=== PATIENT | male | born 1960 | race African-American/Black ===

== ENCOUNTER 2021-02-05 01:18 | Emergency (ER) | payer SELFPAY ==
[~2021-02-05] VITALS: Ht 177.8 cm; Wt 80.0 kg
[2021-02-05] MEDS ORDERED: SODIUM CHLORIDE 0.9% 1,000 ML IV ONE (02:00)
[2021-02-05 02:37] LABS: EOSINOPHILS % 2.1 % (0.0-5.0); HEMATOCRIT. 40.4 % (42.0-52.0); HEMOGLOBIN. 14.1 g/dL (14.0-18.0); LYMPHOCYTES % 25.3 % (20.0-50.0); MEAN CORPUSCULAR HEMOGLOBIN 31.2 pg (28.0-32.0); MEAN CORPUSCULAR VOLUME 89.2 fL (80.0-94.0); MEAN PLATELET VOLUME 7.7 fl (7.4-10.4); MONOCYTES % 11.3 % (2.0-8.0); NEUTROPHILS % 60.3 % (40.0-76.0); PLATELET 227 x1000/uL (130-400); RED BLOOD CELL COUNT 4.54 mill/uL (4.7-6.1); RED CELL DISTRIBUTION WIDTH 13.4 % (11.6-14.6)
[2021-02-05 02:38] LABS: CHLORIDE 110 mEq/L (98-107)
[2021-02-05 02:43] LABS: ETHANOL BLOOD < 10 mg/dL
[2021-02-05 03:32] LABS: *AMPHETAMINES SCREEN URINE PRESUMTIVE POSITIVE (NEGATIVE); *BARBITURATES SCREEN URINE NEGATIVE (NEGATIVE); *BENZODIAZEPINES SCREEN URINE NEGATIVE (NEGATIVE); *COCAINE SCREEN URINE NEGATIVE (NEGATIVE); CANNABINOID URINE SCREEN PRESUMTIVE POSITIVE (NEGATIVE); METHADONE URINE SCREEN NEGATIVE (NEGATIVE); OPIATES URINE SCREEN NEGATIVE (NEGATIVE); PHENCYCLIDINE URINE SCREEN PRESUMTIVE POSITIVE (NEGATIVE)
[2021-02-05 07:05] VITALS: BP 128/56
== END 2021-02-05 08:19 | disposition home or self-care (01) ==
LOC: EDBD 01:55 → ER 01:55
DX: F16.188 Hallucinogen abuse with other hallucinogen-induced disorder (principal); F15.188 Other stimulant abuse with other stimulant-induced disorder; F12.188 Cannabis abuse with other cannabis-induced disorder
CPT/HCPCS: 36415; 70450; 71045; 80053; 80305; 80307; 80320; 80329; 82962; 85025; 93005; 96360; 99285; J7030; Z7610; G0480